=== PATIENT | male | born 1990 | race Caucasian/White ===

== ENCOUNTER 2017-05-13 10:12 | Emergency (ER) | payer OTHER ==
[2017-05-13 10:24] VITALS: BP 149/47
--- NOTE | 2017-05-13 11:00 | RAD ---
Indication: Right wrist pain. 3 views of the wrist demonstrates no fracture. No other bone or joint abnormality is identified. IMPRESSION: NO FRACTURE OF THE WRIST IS NOTED.
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
--- NOTE | 2017-05-13 11:04 | RAD ---
Indication: Left ankle injury 3 views of left ankle demonstrates ankle mortise intact. Minimal soft tissue swelling is noted laterally. Dorsal bony fragment off the navicular is noted likely representing accessory ossicle. IMPRESSION: No definite fracture is noted although bony fragment off the dorsal aspect of the navicular is likely due to accessory ossicle. Clinical correlation is suggested.
== END 2017-05-13 11:25 | disposition home or self-care (01) ==
LOC: UCEAST 10:12
DX: S93.402A Sprain of unspecified ligament of left ankle, initial encounter (principal); S63.501A Unspecified sprain of right wrist, initial encounter; W19.XXXA Unspecified fall, initial encounter; Y93.9 Activity, unspecified; Y92.9 Unspecified place or not applicable; Z91.013 Allergy to seafood
CPT/HCPCS: 99203; G0463

== ENCOUNTER 2017-07-01 16:07 | Emergency (ER) | payer OTHER ==
[2017-07-01 16:13] VITALS: BP 140/97
[2017-07-01] MEDS ORDERED: Naproxen TAB* 250 MG PO ONE (16:51)
[2017-07-01] MEDS ORDERED: Cyclobenzaprine TAB* 10 MG PO ONE (17:38)
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
== END 2017-07-01 18:30 | disposition home or self-care (01) ==
LOC: UCEAST 16:07
DX: S30.0XXA Contusion of lower back and pelvis, initial encounter (principal); W22.8XXA Striking against or struck by other objects, initial encounter; Y93.55 Activity, bike riding; Y92.9 Unspecified place or not applicable; Z87.891 Personal history of nicotine dependence
CPT/HCPCS: 72220; 99212; A9270-GY; G0463

== ENCOUNTER → 2018-11-23 05:38 | Day surgery (SDC) | payer OTHER ==
[~2018-11-23 05:38] MED LIST: Buffered Lidocaine 1% SYRIN* 1 ML/SYRINGE INTRADERM ONE; Bupivacaine 0.25% W/EPI* 10 ML SDV ONE; Dexamethasone TAB* 4 MG ONE; Dexamethasone TAB* 4 MG PO ONE; DiMENhydriNATE IV* 50 MG/ML VIAL IV PUSH PRN; Famotidine IV* 10 MG/ML 2 ML (20 mg) IV ONE; Famotidine IV* 10 MG/ML 2 ML (20 mg) ONE; Ketorolac INJ* 30 MG/ML 1 ML VIAL ONE; Lactated Ringers 1000 ML Bag* 1,000 ML IV SCH; Lidocaine 2% PF * 5 ML VIAL ONE; Midazolam* 1 MG/ML 5 ML VIAL (5 MG) ONE; Morphine VIAL* 10 MG/ML 1 ML VIAL ONE; Morphine VIAL* 4 MG/ML VIAL (1 ml vial) IV PRN; Naloxone* 0.4 MG/ML 1 ML VIAL IV PRN; Ondansetron ODT TAB* 4 MG ONE; Ondansetron TAB* 4 MG PO ONE; PROCHLORPERAZINE INJ 5 MG/ML 2 ML VIAL IV PRN; Propofol* 10 MG/ML 20 ML BTL ONE; Ropivacaine* 2 MG/ML 20 ML VIAL (0.2%) ONE; ceFAZolin 2 GM PREMIX in ORs 2 GM/50 ML BAG IVPB ONE; fentaNYL* 50 MCG/ML 2 ML VIAL (100 MCG VIAL) ONE; oxyCODONE/Acetamin 5/325 MG* TAB ONE; oxyCODONE/Acetamin 5/325 MG* TAB PO PRN
[2018-11-23] MEDS: fentaNYL* 50 MCG/ML 2 ML VIAL (100 MCG VIAL) IV PRN ×3 (08:36→09:36)
[2018-11-23 09:34] VITALS: BP 137/96
--- NOTE | 2018-11-23 20:25 | OP ---
DATE OF OPERATION: 11/23/18 [facility] DATE OF : 89. SURGEON: Eugenia Burrows MD WEB SUPPORT ENGINEER: ZACHARY Perez ANESTHESIOLOGIST: Dr. Neal. ANESTHESIA: General. PRE-OP DIAGNOSIS: Left shoulder nonunion, malunion of distal clavicle fracture. POST-OP DIAGNOSIS: Left shoulder nonunion, malunion of distal clavicle fracture. OPERATIVE PROCEDURE: Left shoulder distal clavicle excision. COMPLICATIONS: None. ESTIMATED BLOOD LOSS: Minimal. INDICATIONS: Iker Nichols is a 28-year-old male who presented several weeks after a distal clavicle fracture. We elected to try to follow it to see if it healed. He subsequently laid down a lot of bone, but did not fully heal. He had evidence of a nonunion. He had persistent pain. Because the fracture is so distal and with the CT scan about 6 to 8 mm involved, decision was made to do distal clavicle excision. Risks and benefits were discussed at length and included but not limited to bleeding, infection, damage to nerves, vessels, surrounding structures, wound nonhealing, persistent pain, need for further surgery, scarring, stiffness, incomplete relief of symptoms, and risks of anesthesia. He has elected to proceed. DESCRIPTION OF PROCEDURE: The patient was greeted in the preoperative area. The extremity was marked. The patient was brought back to the operating suite, where she was placed in the supine position on the operating room table. He then underwent general anesthesia under endotracheal intubation, after which he was positioned in a lazy beach chair position, after which the shoulder was prepped and draped in the usual sterile fashion beginning with chlorhexidine soap, scrub, and alcohol wipe and a final prep with ChloraPrep. After appropriate surgical pause indicating site, side, procedure, administration of antibiotics, a Saber incision was then made over the distal clavicle. The soft tissues were carefully dissected to expose the trapezius fascia and AC joint, this was incised in line and the flaps were taken. The distal clavicle was exposed. There appeared to be a partial nonunion. A sagittal saw was used to resect approximately 1 cm of the distal clavicle at the nonunion site. No evidence of ligamentous instability was assessed. The osteotome and rasp were used to loosen the block and remove any rough edges. The space was assessed and the shoulder was taken through range of motion, no evidence of impingement. The wounds were copiously irrigated. The capsule was closed with 0 Vicryl, skin with 3-0 Monocryl and 3-0 nylon. Sterile dressings were applied. A sling was applied. He was awoken from anesthesia and transferred to the PACU in stable condition. POSTOPERATIVE PLAN: He will be nonweightbearing, in a sling for a couple of days. Range of motion as tolerated. Discharged on pain medication. DVT prophylaxis was considered but deferred due to no previous personal or family history. I will see the patient back in 14 days. [id number]/[facility] #: [id number] MTDD
== END | disposition home or self-care (01) ==
LOC: OR 05:38
PROVIDERS: ATTEND Orthopaedic Surgery
DX: S42.032K Displaced fracture of lateral end of left clavicle, subsequent encounter for fracture with nonunion (principal); X58.XXXD Exposure to other specified factors, subsequent encounter; Y92.9 Unspecified place or not applicable
CPT/HCPCS: A9270-GY; J0690; J1885; J2250; J2270; J2704; J2795; J3010; J8540